=== PATIENT | female | born 1960 | race Caucasian/White ===

== ENCOUNTER 2016-12-14 10:37 | Day surgery (SDC) | payer OTHER ==
[~2016-12-14] VITALS: Ht 160 cm; Wt 58.1 kg
[~2016-12-14 10:37] MED LIST: 0.9% Sodium Chloride 1,000 ML IV SCH; DOCU250C2 PO; EPIN0.3P2 IJ; LEVO100T6 PO; MELO-259 PO; Sodium Chloride LOK Flush 10 mL Syringe IV PRN; fentaNYL-PF 50 mCg/mL 2 mL Inj IVPUSH PRN
[2016-12-14 11:15] VITALS: BP 122/78; PULSE 71; RESP 14; O2SAT 98
--- NOTE | 2016-12-14 12:33 | PCM.HPANE ---
Patient Data Surgeon Admitting Provider: Attending Provider:Bernabe Mora MD Primary Care Physician:Sharmila Aquino MD Other Provider: Reason for Visit Screening Ht/WT & BMI Height (Feet): 5 Height (Inches): 3 Weight (Kilograms): 58.06 Body Mass Index 22.00 Allergies Coded Allergies: beeswax (Verified Allergy, Severe, anaphylaxis, 07/29/14) codeine (Verified Allergy, Intermediate, makes her hyper, 07/29/14) Past Anesthesia History Anesthesia History: Denies:: Abnormal Airway, Anesthesia Reactions, Difficult Intubation, Fam Anesthesia Reaction, Fam Malignant Hypertherm, Malignant Hyperthermia Diabetes History Hx Diabetes?: No MRSA MRSA: No Medications Hypertension Medication: No Home Meds Incl Beta Sharri: No Reported Medications Meloxicam 7.5 Mg Tablet7.5 Mg PO DAILY 30 Days Ref 0 12/13/16 Levothyroxine 100 Mcg [id number] Mcg PO DAILY For Thyroid Replacement Ref 0 12/13/16 Epinephrine (Epipen 2-Андрей)0.3 Mg/0.3 Ml Auto.injct0.3 Mg IJ 12/13/16 Discontinued Reported Medications Docusate Sodium 250 Mg [id number] Mg PO DAILY PRN For Constipation Ref 0 12/13/16 History History of ENT Problems?: No HEENT History: Denies:: Abnormal Airway Difficult Intubation Dysphagia Hearing Problem Denture Type: None Teeth Condition: Within Normal Limits Hx of Heart Problems?: No Cardiovascular History: Denies:: AICD Abdominal Aortic Aneurism Atrial Fibrillation Cardiac Surgery Chest Pain Congestive Heart Failure Coronary Artery Disease Edema Heart Murmur Hypertension Irregular Heartbeat Pacemaker Peripheral Vascular Rheumatic Fever Thrombophlebitis Valvular Heart Disease Hx of Respiratory Problem?: No Respiratory History: Denies:: Asthma COPD Chest Surgery Cough Dyspnea Emphysema Hemoptysis Oxygen Administration Pneumonia Pulmonary Embolism Tuberculosis Use of C-PAP Machine Use of Inhalers / NEBS Hx Neurologic Problems?: No Neurological History: Denies:: CVA Hx of GI Problems?: Yes Hx of Problems?: No Female Hx: Denies:: Currently Hx Musculoskeletal Problems?: No Musculoskeletal History: Denies:: Fibromyalgia Joint Replacement Psycho Social History: Denies:: Anxiety Hx Surgeries?: Yes (CARPAL TUNNEL, FOOT BONE GRAFT) Hx Any Other Health Problems?: Yes Hx Diabetes: No Hx Alcohol Use: No Smoking Status: Former Smoker Stop/Bang Treated for Sleep Apnea?: No Do You Have a CPAP Machine?: No S-Snoring: Do You Snore Loudly: No T-Tired: feel tired, fatigued: No O-Obsered: Observed not breath: No P-Blood Pressure: treated: No B- Body Mass Index > 35 kg/m2: No A- Age over 50: Yes N- Neck Large Circumference: No G- Gender Male: No ALEX Total Score: 1 ALEX Risk Assessment: Low Risk, <3 Yes Risk Assessment Category Category 1A: Patient has history of documented sleep apnea, and HAS NOT received any narcotic, sedative or anesthesia administration during this stay. Category 1B: Patient has history of documented sleep apnea, and HAS received any narcotic , sedative or anesthesia administration during this stay Category 2: Patient has SUSPECTED Obstructive Sleep Apnea, and HAS received any narcotic , sedative or anesthesia administration during this stay. Category 3: Patient has SUSPECTED Obstructive Sleep Apnea and HAS NOT received narcotic, sedative or anesthesia administration during this stay. Category 4: Outpatient in Procedural Areas with known sleep apnea or who screen positive for High Risk via the STOP/BANG questionnaire. Exam Exam Vital Signs Vital Signs Date Time Temp Pulse Resp B/P Pulse Ox O2 Delivery O2 Flow Rate FiO2 12/14/16 11:15 71 14 122/78 98 Room Air General Appearance: Oriented X3 HEENT/AIRWAY: MP 2 Lungs: Normal Air Movement Heart: Regular Rate/Rhythm Meds/Labs/Diagnostics Admission Meds Current Medications Sodium Chloride (Normal Saline) 1,000 ml @ 10 mls/hr Q24H IV Last administered on 12/14/16t 12:23; Start 12/14/16 at 06:00 Plan Impression Patient chart reviewed, patient interviewed and anesthestic plan with risks, benefits, and alternatives discussed, and informed consent obtained. ASA Physical Status: ASA2 Mod Systemic Disease Anesthetic Plan: MAC Bene/Risks/Altern/Consents: Yes HP Complete Prior to Induction: Yes Wiley Louie MD Dec 14, 2016 12:33
[2016-12-14 13:06] VITALS: BP 94/59; PULSE 72; RESP 16; O2SAT 97
[2016-12-14 13:17] VITALS: BP 103/65; PULSE 67; RESP 16; O2SAT 98
[2016-12-14 13:21] VITALS: BP 108/80; PULSE 66; RESP 16; O2SAT 99
--- NOTE | 2016-12-14 13:55 | ENDO ---
[address] [address] ENDOSCOPY PROCEDURE PATIENT: RACHEL RODRIGUEZ : 1960 MR#: [id number] ADMIT: 12/14/2016 JOB ID: [id number] DATE: 12/14/2016 PROCEDURE: Colonoscopy. INDICATION: Screening. Patient's ASA classification is two. Mallampati score is two. MEDICATIONS: Versed 3 mg, fentanyl 75 mcg. In addition, anesthesia assistance was needed as we were unable to adequately sedate the patient. INSTRUMENT USED: PCF H 180 AL. PREPARATION QUALITY: Good. PROCEDURE DETAILS: After informed consent was obtained, the patient was brought into the GI suite where she was placed on oxygen via nasal cannula and monitored with continuous pulse oximeter, telemetry, and blood pressure monitoring. A time-out was performed, then she was placed in the left lateral decubitus position and medications were administered for sedation. Digital rectal exam was performed, which was unremarkable. The colonoscope was then inserted into the rectum and advanced to the distal descending colon, where the patient started complaining of pain. As we withdrew the scope, the patient was comfortable and was not responsive to verbal stimuli. At this point we then tried to advance the colonoscope past the distal descending colon. and then she started complaining of pain as well. At this point anesthesia assistance was requested and following deeper sedation we were then able to advance the scope without difficulty to the cecum. Once the cecum was reached, the colonoscope was withdrawn back into the rectum as the mucosa and lumen were examined. In the rectum, retroflexion was performed. Following retroflexion, the remaining air in the rectum was suctioned and the procedure was completed. FINDINGS: 1. In the ascending colon there was an approximately 4-5 mm sessile polyp that was removed with a cold snare. Polyp was not retrieved. 2. In the transverse colon there were three polyps ranging in size from diminutive to 6 mm. Polyps were removed with a combination of cold biopsy forceps and hot snare. One of the larger transverse polyps following polypectomy had minimal oozing of blood, therefore one hemoclip was placed for hemostasis. 3. In the sigmoid colon there was an approximately 3-4 mm sessile polyp that was removed with a cold snare. IMPRESSION: 1. Three transverse colon polyps. 2. Ascending colon polyp not retrieved. 3. Sigmoid colon polyp. RECOMMENDATIONS: 1. Avoid NSAIDs and anticoagulants for 72 hours. 2. Repeat colonoscopy in three years. COMPLICATIONS: None. ESTIMATED BLOOD LOSS: Less than 5 mL.
--- NOTE | 2016-12-17 16:18 | PATH ---
SURGICAL PATHOLOGY Attending Physician:Nan Mcleod CASE STATUS: Signed Out PATIENT NAME: RACHEL RODRIGUEZ PID: [id number] : 1960 DATE COLLECTED:12/14/2016 20:22 SPECIMEN: 1: Colon, Polyp 2: Colon, Biopsy CLINICAL HISTORY: 1). TRANSVERSE POLYP 2). SIGMOID FINAL DIAGNOSIS: 1. Transverse Colon Polyp, Biopsy: Portions of tubular adenoma x4; negative for high-grade dysplasia. Portions of sessile serrated adenoma x3. 2. Sigmoid, Biopsy: Portion of tubular adenoma x1; negative for high-grade dysplasia. Portion of colorectal mucosa x 1 with focal hyperplastic mucosal changes. Superficial portion of colorectal mucosa x1 with no significant histomorphologic abnormality. ICD10: K63.5 GROSS DESCRIPTION: The specimen is received in two formalin filled containers labeled with the patient's name. 1). The specimen is sublabeled "transverse polyp" and consists of multiple portions of tissue impossible debris which aggregate to 0.4 x 0.4 x 0.3 CM. The specimen is entirely submitted in cassette 1A. 2). The specimen is sublabeled "sigmoid" and consists of 3 tiny portions of tissue which aggregate to 0.2 x 0.2 x 0.2 CM. The specimen is entirely submitted in cassette 2A. 12/14/2016 [facility] ICD-9 CODES: CPT CODES: 1: 49255 2: 31420 Electronically Signed Out By Kemi Delgadillo MD [facility] Pathology Kemi Delgadillo MD [facility], [address] [place] [address], [place] [address] Technical component performed at [facility], [address] [place] [address] Ave[address], [place], [address]
== END 2016-12-14 23:59 | disposition home or self-care (01) ==
LOC: END 10:37
PROVIDERS: ATTEND Internal Medicine Gastroenterology
DX: Z12.11 Encounter for screening for malignant neoplasm of colon (principal); D12.3 Benign neoplasm of transverse colon; D12.5 Benign neoplasm of sigmoid colon; E03.9 Hypothyroidism, unspecified; G43.909 Migraine, unspecified, not intractable, without status migrainosus; E78.2 Mixed hyperlipidemia; M06.9 Rheumatoid arthritis, unspecified; H54.41 Blindness, right eye, normal vision left eye
CPT/HCPCS: 45385; J2250; J3010; J7030